=== PATIENT | male | born 2000 | race Caucasian/White ===

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

== ENCOUNTER 2021-01-18 22:24 | Emergency (ER) | payer OTHER, BC ==
[2021-01-18 22:52] VITALS: BP 120/72; PULSE 75
--- NOTE | 2021-01-18 22:57 | EDM.PDOC ---
ED HPI GENERAL MEDICAL PROBLEM - General Chief Complaint: Genitourinary Problem Stated Complaint: URINARY RETENTION Time Seen by Provider: 01/18/21 22:45 - History of Present Illness INITIAL COMMENTS - FREE TEXT/NARRATIVE: 20-year-old male who is presenting with acute urinary retention. Patient had a laparoscopic cholecystectomy in [place] earlier today. He was given 3 L of fluid in the PACU and his bladder scan reportedly showed approximately 500. He was told that if it did not improve he would need to go to the ER. Patient presents with severe suprapubic pain and pressure and sensation that he has to urinate but cannot. No other symptoms. Symptoms constant gradually worsening. Read was placed by nursing prior to my assessment without complication patient symptoms of not resolved. - Related Data Allergies Allergy/AdvReac Type Severity Reaction Status Date / Time No Known Allergies Allergy Verified 01/06/21 08:48 Home Meds: Home Meds buPROPion [Wellbutrin XL] 300 mg PO DAILY 11/15/15 [History] Acyclovir 200 mg PO ASDIRECTED PRN 01/06/21 [History] Desvenlafaxine Succinate [Pristiq] 100 mg PO DAILY 01/06/21 [History] Ergocalciferol (Vitamin D2) [Vitamin D2] 50,000 units PO WEEKLY 01/06/21 [History] Pregabalin 300 mg PO BID 01/06/21 [History] QUEtiapine [SEROquel] 200 mg PO BEDTIME 01/06/21 [History] cloNIDine HCL [Clonidine HCl] 0.3 mg PO BEDTIME 01/06/21 [History] hydrOXYzine HCL [Hydroxyzine HCl] 50 mg PO TID PRN 01/06/21 [History] Past Medical History HEENT History: Reports: None Cardiovascular History: Reports: None Respiratory History: Reports: None Gastrointestinal History: Reports: Cholelithiasis Genitourinary History: Reports: None Musculoskeletal History: Reports: Fibromyalgia Other Musculoskeletal History: Chronic leg pain and restless legs syndrome Neurological History: Reports: None Psychiatric History: Reports: None Endocrine/Metabolic History: Reports: None Hematologic History: Reports: None Immunologic History: Reports: None Oncologic (Cancer) History: Reports: None Dermatologic History: Reports: None - Past Surgical History Head Surgeries/Procedures: Reports: None HEENT Surgical History: Reports: Myringotomy w Tube(s) Cardiovascular Surgical History: Reports: None Respiratory Surgical History: Reports: None GI Surgical History: Reports: None Male Surgical History: Reports: None Endocrine Surgical History: Reports: None Neurological Surgical History: Reports: None Musculoskeletal Surgical History: Reports: Other (See Below) Other Musculoskeletal Surgeries/Procedures:: hx muscle bx Oncologic Surgical History: Reports: None Dermatological Surgical History: Reports: None Social & Family History - Family History Family Medical History: No Pertinent Family History - Caffeine Use Caffeine Use: Reports: Coffee, Energy Drinks, Soda - Living Situation & Occupation Living situation: Reports: with Family Occupation: Student ED ROS GENERAL - Review of Systems Review Of Systems: See Below Free Text/Narrative/Comment: General: No fever. Respiratory: No shortness of breath. Cardiac: No chest pain. Gastrointestinal: Per HPI Urinary: Per HPI Musculoskeletal: No myalgias/arthralgias. Neurologic: No headache. ED EXAM, GENERAL - Physical Exam Exam: See Below Free Text/Narrative:: General Appearance: No acute distress, appears comfortable Skin: No rash HEENT: Normocephalic/atraumatic, sclera anicteric, mucous membranes moist Neck: Normal range of motion Chest and Lungs: Bilateral breath sounds, clear to auscultation Cardiovascular: Regular rate and rhythm, no murmur Abdomen: Incisions clean dry and intact, 1040 mls in the read bag Back: Normal Musculoskeletal: No edema or tenderness Neurologic: Awake, alert, no obvious deficits, moving all extremities Psychiatric: Appropriate, cooperative Course - Vital Signs Last Recorded V/S: Last Vital Signs Temp 98.4 F 01/18/21 22:50 Pulse 75 01/18/21 22:50 Resp 20 01/18/21 22:50 BP 120/72 01/18/21 22:50 Pulse Ox 100 01/18/21 22:50 Departure - Departure Time of Disposition: 22:55 Disposition: Home, Self-Care 01 Condition: Good Clinical Impression: Acute urinary retention - Discharge Information *PRESCRIPTION DRUG MONITORING PROGRAM REVIEWED*: Not Applicable *COPY OF PRESCRIPTION DRUG MONITORING REPORT IN PATIENT NATHAN: Not Applicable Instructions: Acute Urinary Retention, Male, Indwelling Urinary Catheter Care, Adult Referrals: Kayli Costa NP [Primary Care Provider] - 2 Days Patrica Niño MD [Physician] - Additional Instructions: Your Read catheter will need to remain in place for 2 to 3 days. Please call your primary care doctor's office tomorrow to see if they are able to remove your catheter in their clinic. If this is not the case you will need to follow- up with the urologist. The following information is given to patients seen in the emergency department who are being discharged to home. This information is to outline your options for follow-up care. We provide all patients seen in our emergency department with a follow-up referral. The need for follow-up, as well as the timing and circumstances, are variable depending upon the specifics of your emergency department visit. If you don't have a primary care physician on staff, we will provide you with a referral. We always advise you to contact your personal physician following an emergency department visit to inform them of the circumstance of the visit and for follow-up with them and/or the need for any referrals to a consulting specialist. The emergency department will also refer you to a specialist when appropriate. This referral assures that you have the opportunity for follow-up care with a specialist. All of these measure are taken in an effort to provide you with optimal care, which includes your follow-up. Under all circumstances we always encourage you to contact your private physician who remains a resource for coordinating your care. When calling for follow-up care, please make the office aware that this follow-up is from your recent emergency room visit. If for any reason you are refused follow-up, please contact the [facility] Emergency Department at and asked to speak to the emergency department charge nurse. Sepsis Event Note (ED) - Evaluation Sepsis Screening Result: No Definite Risk - Focused Exam Vital Signs: Vital Signs Temp Pulse Resp BP Pulse Ox 01/18/21 22:50 98.4 F 75 20 120/72 100 - Assessment/Plan Assessment:: Patient with postoperative acute urinary retention. Condition relieved by Read. No concern for other etiologies at this time. Patient follow-up with primary care urology follow-up given as needed as well.
== END 2021-01-18 23:17 | disposition home or self-care (01) ==
LOC: MW.ED 22:24
DX: R33.9 Retention of urine, unspecified (principal); Z79.899 Other long term (current) drug therapy
CPT/HCPCS: 51702; 81001; 99283; 99283-25

== ENCOUNTER 2023-09-24 09:49 | Emergency (ER) | payer BC ==
[2023-09-24] MEDS: Sodium Chloride 0.9% 1,000 ML IV ONE (10:13)
[2023-09-24 10:14] LABS: BASOPHILS ABSOLUTE AUTO 0.02 K/uL (0.00-0.20); BASOPHILS PERCENT AUTO 0.4 % (0.0-1.0); EOSINOPHILS ABSOLUTE AUTO 0.07 K/uL (0.00-0.45); EOSINOPHILS PERCENT AUTO 1.3 % (0.0-6.0); HEMATOCRIT 43.4 % (42.0-52.0); HEMOGLOBIN 15.2 g/dL (14.0-18.0); IMMATURE GRAN ABSOLUTE AUTO 0.01 K/uL (0.00-0.05); IMMATURE GRAN PERCENT AUTO 0.2 % (0.0-0.4); LYMPHOCYTES ABSOLUTE AUTO 1.68 K/uL (1.00-4.80); LYMPHOCYTES PERCENT AUTO 30.2 % (24.0-44.0); MEAN CORPUSCULAR HEMOGLOBIN 29.9 pg (28.0-32.0); MEAN CORPUSCULAR VOLUME 85.3 fL (83.0-99.0); MEAN PLATELET VOLUME 11.2 fL (9.4-12.4); MONOCYTES ABSOLUTE AUTO 0.64 K/uL (0.00-0.80); MONOCYTES PERCENT AUTO 11.5 % (0.0-8.0); NEUTROPHILS ABSOLUTE AUTO 3.15 K/uL (1.80-7.70); NEUTROPHILS PERCENT AUTO 56.4 % (41.0-71.0); PLATELET COUNT,PLT 217 K/uL (150-400); RED BLOOD CELL COUNT 5.09 M/uL (4.52-5.90); WHITE BLOOD CELL COUNT,WBC 5.57 K/uL (3.9-11.3)
[2023-09-24 10:36] LABS: A/G RATIO 1.1 (0.9-1.6); ALBUMIN 3.9 g/dL (3.4-5.0); BILIRUBIN TOTAL 0.4 mg/dL (0.2-1.0); CALCIUM 9.1 mg/dL (8.5-10.1); CREATININE 1.4 mg/dL (0.8-1.3); EST CRCL DRUG DOSING (CG) 91.95 mL/min; POTASSIUM,K 4.2 mmol/L (3.5-5.1); PROTEIN TOTAL,TP 7.3 g/dL (6.4-8.2)
[2023-09-24] MEDS: Iopamidol 755 MG/ML 500 ML Multipack Bottle IVPUSH STA (11:01)
[2023-09-24] MEDS: Ondansetron 4 MG/2 ML SDV IVPUSH ONE (11:14)
[2023-09-24 11:33] LABS: APPEARANCE,URINE CLEAR; BILIRUBIN,URINE NEGATIVE (NEGATIVE); COLOR,URINE YELLOW; GLUCOSE,URINE NEGATIVE (NEGATIVE); KETONES,URINE NEGATIVE (NEGATIVE); LEUKOCYTE ESTERASE,URINE NEGATIVE (NEGATIVE); NITRITE,URINE NEGATIVE (NEGATIVE); OCCULT BLOOD,URINE NEGATIVE (NEGATIVE); PROTEIN,URINE NEGATIVE (NEGATIVE); UROBILINOGEN,URINE 0.2 EU/dL (<2.0)
[2023-09-24] MEDS ORDERED: cefOXitin 2 GM in Sodium Chloride 0.9% 50 ML IV ONE (11:58)
[2023-09-24] MEDS: ceFAZolin 2 GM in Sodium Chloride 0.9% 50 ML IV ONE (12:27)
[2023-09-24] MEDS: metroNIDAZOLE/Normal Saline 500 MG in Premix Bag 1 BAG IV ONE (12:27)
[2023-09-24] MEDS: Morphine 4 MG/ML Syringe IVPUSH ONE (12:28)
[2023-09-24] MEDS ORDERED: Propofol 200 MG/20 ML SDV ONE (13:11)
[2023-09-24] MEDS ORDERED: ceFAZolin 1 GM Vial ONE (13:11)
[2023-09-24] MEDS ORDERED: fentaNYL 250 MCG/5 ML SDV ONE (13:11)
[2023-09-24] MEDS ORDERED: Midazolam 1 MG/ML 2 ML SDV ONE (13:11)
[2023-09-24] MEDS ORDERED: Bupivacaine 0.5% 30 ML SDV ONE (13:11)
[2023-09-24] MEDS ORDERED: Succinylcholine/Sod PF 100 MG/5 ML SYRINGE IV ONE (13:13)
[2023-09-24] MEDS ORDERED: Rocuronium Bromide 50 MG/5 ML Syringe ONE (13:13)
[2023-09-24] MEDS: fentaNYL 50 MCG/ML SDV IVPUSH ONE (14:34)
[2023-09-24 14:40] VITALS: BP 131/79; PULSE 79
== END 2023-09-24 14:41 ==
LOC: MW.ED 09:49
DX: K35.80 Unspecified acute appendicitis (principal); Z79.899 Other long term (current) drug therapy; Z86.16 Personal history of COVID-19
CPT/HCPCS: 36415; 74177; 80053; 81003; 85025; 96361; 96365; 96367; 96375; 99285; J0690; J1836; J2270; J2405; J3010; J3490; J7030; Q9967; J0330; J0665; J2250; J2704